=== PATIENT | female | born 2000 | race Two or more races ===

== ENCOUNTER 2025-02-12 09:04 | Emergency (ER) | payer SELFPAY ==
[~2025-02-12] VITALS: Ht 167.6 cm; Wt 65.0 kg
[2025-02-12 09:25] VITALS: BP 118/84; PULSE 71; RESP 16; TEMP 97.9; O2SAT 99
--- NOTE | 2025-02-12 09:47 | ED.PDOC ---
General HPI Comments A 24 YEAR OLD FEMALE PRESENTS TO THE ED WITH COMPLAINT OF UTI SYMPTOMS. PATIENT STATES SHE HAS BEEN EXPERIENCING PAINFUL URINATION, URINARY URGENCY, NAUSEA, AND SUPRAPUBIC PRESSURE FOR THE PAST 4 DAYS. PATIENT DENIES HEMATURIA, FLANK PAIN, FEVER, CHILLS, SHORTNESS OF BREATH, CHEST PAIN, VOMITING, HEADACHE, OR OTHER COMPLAINTS. NO OTHER SYMPTOMS OR MODIFYING FACTORS AT THIS TIME. PATIENT IS ALERT, ORIENTED X 4, AND HAS STEADY GAIT. Chief Complaint: Urinary Time Seen by MD: 09:10 Reviewed notes: Nurses Notes, Medications, Allergies Allergies: Coded Allergies: NO KNOWN ALLERGIES (Unverified , 02/12/25) Home Meds Active Scripts Phenazopyridine HCl (Phenazopyridine Hydrochlo) 200 Mg Tab, 200 MG PO TID, #6 TAB Prov:JOHN GRIGGS 02/12/25 Sulfamethoxazole W/Trimethopri (Bactrim Ds Tablet) 1 Tab Tb, 1 TAB PO BID, #20 TAB Prov:JOHN GRIGGS 02/12/25 Information Source: Patient Mode of Arrival: Ambulatory Severity: Moderate Inability to void: None Timing: Days Duration: Since onset, Days Prehospital treatment: None Onset: Spontaneous Symptoms: Dysuria, Frequency, Urgency, Other (SUPRAPUBIC PRESSURE) History of: UTI Location: Suprapubic associated signs and symptoms: Nausea, Dysuria Past Medical History PAST MEDICAL HISTORY: Denies Surgical History: Denies all surgeries ELEMENTARY SUPERVISOR History: No Pertinent ELEMENTARY SUPERVISOR History Family History Family History: Reviewed,noncontributory to illness Social History Smoker: Non-Smoker Alcohol: Denies ETOH Use Drugs: Denies Drug Use Lives In: Home Constitutional: denies: chills, diaphoresis, fatigue, fever, malaise, sweats, weakness, others EENTM: denies: blurred vision, double vision, ear bleeding, ear discharge, ear drainage, ear pain, ear ringing, eye pain, eye redness, hearing loss, mouth pain, mouth swelling, nasal discharge, nose bleeding, nose congestion, nose pain, photophobia, tearing, throat pain, throat swelling, voice changes, others Respiratory: denies: cough, hemoptysis, orthopnea, SOB at rest, shortness of breath, SOB with excertion, stridor, wheezing, others Cardiovascular: denies: chest pain, dizzy spells, diaphoresis, Dyspnea on exertion, edema, irregular heart beat, left arm pain, lightheadedness, palpitations, PND, syncope, others Gastrointestinal: denies: abdomen distended, abdominal pain, blood streaked bowels, constipated, diarrhea, dysphagia, difficulty swallowing, hematemesis, melena, nausea, poor appetite, poor fluid intake, rectal bleeding, rectal pain, vomiting, others Genitourinary: reports: burning, dysuria, pain (SUPRAPUBIC PRESSURE), urgency; denies: abnormal vagina bleeding, dyspareunia, flank pain, frequency, hematuria, incontinence, , vagina discharge, others Neurological: denies: dizziness, fainting, headache, left sided numbness, left sided weakness, numbness, paresthesia, pre-existing deficit, right sided numbness, right sided weakness, seizure, speech problems, tingling, tremors, weakness, others Musculoskeletal: denies: back pain, gout, joint pain, joint swelling, muscle pain, muscle stiffness, neck pain, others Integumetry: denies: bruises, change in color, change in hair/nails, dryness, laceration, lesions, lumps, rash, wounds, others Allergic/Immunocompromised: denies: Difficulty Healing, Frequent Infections, Hives, Itching, others Hematologic/Lymphatic: denies: anemia, blood clots, easy bleeding, easy bruising, swollen glands, others Endocrine: denies: excessive hunger, excessive sweating, excessive thirst, excessive urination, flushing, intolerance to cold, intolerance to heat, unexplained weight gain, unexplained weight loss, others Psychiatric: denies: anxiety, bipolar disorder, depression, hopeless, panic disorder, schizophrenia, sleepless, suicidal, others All Other Systems: Reviewed and Negative Physical Exam General Appearance: No Apparent Distress, Normal HEENT: Normal ENT Inspection, PERRL/EOMI, Pharynx Normal, TMs Normal Neck: Full Range of Motion, Non-Tender, Normal, Normal Inspection Respiratory: Chest Non-Tender, Lungs Clear, No Accessory Muscle Use, No Respiratory Distress, Normal Breath Sounds Cardiovascular: No Edema, No JVD, No Murmur, No Gallop, Normal Peripheral Pulses, Regular Rate/Rhythm Breast Exam: Deferred Gastrointestinal: No Organomegaly, Non Tender, No Pulsatile Mass, Normal Bowel Sounds, Soft, Suprapubic (PRESSURE. ) Genitalia: Deferred Pelvic: Deferred, Tender Uterus Rectal: Deferred Extremities: No calf tenderness, Normal capillary refill, Normal inspection, Normal range of motion, Non-tender, No pedal edema Musculoskeletal : Apperance: Normal Neurologic: Alert, bottom cementer II-XII nml as Tested, No Motor Deficits, Normal Affect, Normal Mood, No Sensory Deficits Cerebellar Function: Normal Reflexes: Normal Skin: Dry, Normal Color, Warm Peripheral Pulses: 2+ carotid (R), 2+ carotid (L) Lymphatic: No Adenopathy Was a procedure done? Was a procedure done?: No Differential Diagnosis Kidney stone (Female): N/A Kidney stone (Male): N/A Penile/Scrotal: N/A Urinary Problem (Male): N/A Urinary Problem (Female): Pyelonephritis, Urolithiasis, UTI, Vaginitis X-Ray, Labs, Meds, VS Vital Signs Date Time Temp Pulse Resp B/P (MAP) Pulse Ox O2 Delivery O2 Flow Rate FiO2 02/12/25 09:25 97.9 71 16 118/84 (95) 99 97.9 02/12/25 09:25 71 16 99 Room Air 0 02/12/25 09:06 98.9 63 18 119/84 98 98.9 Lab Test 02/12/25 09:40 Range/Units Urine Color Light-orange Yellow Urine Clarity Ex.turbid Clear Urine pH 7.5 5.0-9.0 Urine Specific [place] 1.025 1.001-1.035 Urine Protein 1+ H Negative Urine Ketones 1+ H Negative Urine Blood 3+ H Negative /uL Urine Nitrite Negative Negative Urine Bilirubin Negative Negative Urine Urobilinogen Normal Negative mg/dL Urine Leukocyte Esterase 3+ Negative /uL Urine RBC 1843 0 - 4 /hpf Urine Microscopic WBC 474 H 0-5 /HPF Urine Squamous Epithelial Cells Few <5 /hpf Urine Bacteria None seen None Seen /hpf Urine Mucus Few None Seen Urine Yeast (Budding) Few None Seen /hpf Urine Glucose Normal Normal mg/dL Urine Test Negative Negative Current Medications Medications (Trade) Dose Ordered Sig/Vivien Route Start Time Stop Time Status Last Admin Ceftriaxone Sodium (Rocephin) 1,000 mg ONCE ONCE IM 02/12/25 10:15 02/12/25 10:16 DC 02/12/25 10:19 X-Ray, Labs, Meds, VS Comment EXTERNAL MEDICAL RECORDS REVIEWED: [NONE] INDEPENDENT HISTORIANS: [NONE] SOCIAL DETERMINANTS OF HEALTH: [NONE] LABS ORDERED: UA, URINE REVIEWED AND INTERPRETED RESULTS: LEUKO 3+, URINE WBC 474 IMAGING ORDERED: NONE TREATMENTS ORDERED: ROCEPHIN 1G IM PROCEDURES PERFORMED: NONE CRITICAL CARE TIME: NONE I HAVE DISCUSSED THE PATIENT WITH THE ATTENDING PHYSICIAN, DR. FINNEY S/HE AGREES WITH THE PATIENT'S PLAN OF CARE AND DISPOSITION. BASED ON HISTORY OF PRESENT ILLNESS, AND PHYSICAL EXAM, PATIENT WILL BE DISCHARGED HOME. DISCUSSED PLAN FOR DISCHARGE HOME WITH RX [SEPTRA DS AND PYRIDIUM]. MEDICATION WARNINGS GIVEN. SHARED DECISION MAKING: PATIENT INSTRUCTED TO FOLLOW UP WITH PRIMARY CARE PROVIDER IN 1-2 DAYS FOR RE-EVALUATION OF SYMPTOMS. PATIENT VERBALIZES UNDERSTANDING TO RETURN TO ED FOR NEW OR WORSENING SYMPTOMS OR IF FOLLOW UP WITH PCP CANNOT BE OBTAINED. PATIENT FEELS COMFORTABLE GOING HOME AT THIS TIME. ALL QUESTIONS ADDRESSED AT TIME OF DISCHARGE. Time of 1ST Reevaluation: 10:36 Reevaluation 1ST: Improved Patient Education/Counseling: Diagnosis, Treatment, Need For Follow Up Family Education/Counseling: Diagnosis, Treatment, Need For Follow Up Medical Screening: No EMC Exist At This Time SEPSIS Sepsis Screen Date sepsis recognized/suspect: Feb 12, 2025 Time Sepsis recognized/suspect: 0908 Recent Procedure: No On Antibiotic Therapy: No Respiratory Rate >20: No Heart Rate >90: No Temp<36 C (96.8 F) or >38.3 C: No SBP <90 or MAP <65 mmHG: No New Acute Mental Status Change: No Is the patient on CPAP, BIPAP,: No Vital Signs Date Time Temp Pulse Resp B/P (MAP) Pulse Ox O2 Delivery O2 Flow Rate FiO2 02/12/25 09:25 97.9 71 16 118/84 (95) 99 97.9 02/12/25 09:25 71 16 99 Room Air 0 02/12/25 09:06 98.9 63 18 119/84 98 98.9 Medications Medications Dose Ordered Sig/Vivien Route Start Time Stop Time Status Last Admin Dose Admin Ceftriaxone Sodium 1,000 mg ONCE ONCE IM 02/12/25 10:15 02/12/25 10:16 DC 02/12/25 10:19 Departure 1 Departure Time of Disposition: 10:50 Impression: Primary Impression: Acute UTI (urinary tract infection) Disposition: 01 HOME / SELF CARE / HOMELESS Condition: Stable Additional Instructions: FOLLOW-UP WITH PCP IN 1 TO 2 DAYS. TAKE MEDICATIONS PRESCRIBED. RETURN TO ED FOR ANY NEW OR WORSENING SYMPTOMS. e-Prescriptions Phenazopyridine HCl (Phenazopyridine Hydrochlo) 200 Mg Tab 200 MG PO TID, #6 TAB Prov: JOHN GRIGGS 02/12/25 Sulfamethoxazole W/Trimethopri (Bactrim Ds Tablet) 1 Tab Tb 1 TAB PO BID, #20 TAB Prov: JOHN GRIGGS 02/12/25 Discharged With: Self Critical Care Note Critical Care Time?: No Stability Stability form required: No I personally scribed for JOHN GRIGGS ([email or web address]) on 02/12/25 at 09:47. Electronically submitted by Rizwan Soliz ([email or web address]). I personally scribed for JOHN GRIGGS ([email or web address]) on 02/12/25 at 10:33. Electronically submitted by Rizwan Soliz ([email or web address]). JOHN GRIGGS Feb 12, 2025 09:47
[2025-02-12 09:58] LABS: Urine Budding Yeast FEW /hpf (None Seen); Urine Protein, UAD 1+ (Negative)
[2025-02-12] MEDS: cefTRIAXone SOD 1,000 MG VL IM ONE (10:19)
[2025-02-12] MEDS ORDERED: PHEN-922 PO (10:35)
[2025-02-12] MEDS ORDERED: BACDST PO (10:35)
== END 2025-02-12 10:40 | disposition home or self-care (01) ==
LOC: ER 09:04
DX: N39.0 Urinary tract infection, site not specified (principal)
CPT/HCPCS: 81001; 81025; 96372; 99283; J0696

== ENCOUNTER 2025-02-28 10:30 | Emergency (ER) | payer OTHER ==
[~2025-02-28] VITALS: Ht 167.6 cm; Wt 65.6 kg
[~2025-02-28 10:30] MED LIST: BACDST PO; PHEN-922 PO
[2025-02-28] MEDS: ONDANSETRON ODT 4 MG TAB PO ONE (11:11)
[2025-02-28 11:14] LABS: Hematocrit 38.0 % (36.0-46.0); Hemoglobin 13.2 g/dL (12.2-16.2); Mean Corpuscular Hemoglobin 30.9 pg (28.0-32.0); Mean Corpuscular Volume 88.6 fL (80.0-100.0); Nucleated Red Blood Cells % 0.4 %
--- NOTE | 2025-02-28 11:19 | ED.PDOC ---
GI ASSESSMENT HPI Comments 24-year-old female presents here with abdominal pain few days. She states earlier in the month a proximally 3 weeks ago she was diagnosed with UTI, she did have dysuria at that time. She states she was discharged home with the antibiotic but was unable to finish it due to the vomiting. She states she now has pain to her lower abdomen and pain to her left upper quadrant. Reports positive nausea. Denies any diarrhea. She does state that her menstrual cycles proximally 10 days late which is not normal for her. She did take a plan B. currently no longer has any dysuria. But does feel some tingling still in her lower abdomen. Chief Complaint: Abdominal Pain Time Seen by MD: 11:25 Reviewed Notes: Medications, Allergies Allergies: Coded Allergies: NO KNOWN ALLERGIES (Unverified , 02/12/25) Home Meds Active Scripts Phenazopyridine HCl (Phenazopyridine Hydrochlo) 200 Mg Tab, 200 MG PO TID, #6 TAB Prov:JOHN GRIGGS 02/12/25 Sulfamethoxazole W/Trimethopri (Bactrim Ds Tablet) 1 Tab Tb, 1 TAB PO BID, #20 TAB Prov:JOHN GRIGGS 02/12/25 Information Source: Patient Mode of Arrival: Ambulatory Timing: Days Duration: Since onset Prehospital treatment: None Quality: Cramping, Sharp Vomitus: None Severity: Moderate Recent: None Recent Hx of: None Pain Location: Suprapubic Modifying Factors: Nothing Associated sign and symptoms: Abdominal Pain Past Medical History PAST MEDICAL HISTORY: UTI'S Surgical History: Denies all surgeries EXTRACT MIXER History: No Pertinent EXTRACT MIXER History Family History Family History: Reviewed,noncontributory to illness Social History Smoker: Non-Smoker Alcohol: Occasionally Drugs: Marijuana Lives In: Home Constitutional: denies: chills, diaphoresis, fatigue, fever, malaise, sweats, weakness, others EENTM: denies: blurred vision, double vision, ear bleeding, ear discharge, ear drainage, ear pain, ear ringing, eye pain, eye redness, hearing loss, mouth pain, mouth swelling, nasal discharge, nose bleeding, nose congestion, nose pain , photophobia, tearing, throat pain, throat swelling, voice changes, others Respiratory: denies: cough, hemoptysis, orthopnea, SOB at rest, shortness of breath, SOB with excertion, stridor, wheezing, others Cardiovascular: denies: chest pain, dizzy spells, diaphoresis, Dyspnea on exertion, edema, irregular heart beat, left arm pain, lightheadedness, palpitations, PND, syncope, others Gastrointestinal: reports: abdominal pain, nausea; denies: abdomen distended, blood streaked bowels, constipated, diarrhea, dysphagia, difficulty swallowing, hematemesis, melena, poor appetite, poor fluid intake, rectal bleeding, rectal pain, vomiting, others Genitourinary: denies: abnormal vagina bleeding, burning, dyspareunia, dysuria, flank pain, frequency, hematuria, incontinence, pain, , vagina discharge, urgency, others Neurological: denies: dizziness, fainting, headache, left sided numbness, left sided weakness, numbness, paresthesia, pre-existing deficit, right sided numbness, right sided weakness, seizure, speech problems, tingling, tremors, weakness, others Musculoskeletal: denies: back pain, gout, joint pain, joint swelling, muscle pain, muscle stiffness, neck pain, others Integumetry: denies: bruises, change in color, change in hair/nails, dryness, laceration, lesions, lumps, rash, wounds, others Allergic/Immunocompromised: denies: Difficulty Healing, Frequent Infections, Hives, Itching, others Hematologic/Lymphatic: denies: anemia, blood clots, easy bleeding, easy bruising, swollen glands, others Endocrine: denies: excessive hunger, excessive sweating, excessive thirst, excessive urination, flushing, intolerance to cold, intolerance to heat, unexplained weight gain, unexplained weight loss, others Psychiatric: denies: anxiety, bipolar disorder, depression, hopeless, panic disorder, schizophrenia, sleepless, suicidal, others All Other Systems: Reviewed and Negative Physical Exam General Appearance: No Apparent Distress, Normal HEENT: Normal ENT Inspection, Pharynx Normal, TMs Normal Neck: Full Range of Motion, Non-Tender, Normal, Normal Inspection Respiratory: Chest Non-Tender, Lungs Clear, No Accessory Muscle Use, No Respiratory Distress, Normal Breath Sounds Cardiovascular: No Edema, No JVD, No Murmur, No Gallop, Normal Peripheral Pulses, Regular Rate/Rhythm Breast Exam: Deferred Gastrointestinal: No Organomegaly, Non Tender, No Pulsatile Mass, Normal Bowel Sounds, RUQ, Soft, Other (Right upper quadrant and suprapubic tenderness to palpation) Genitalia: Deferred Pelvic: Deferred Rectal: Deferred Extremities: No calf tenderness, Normal capillary refill, Normal inspection, Normal range of motion, Non-tender, No pedal edema Musculoskeletal : Apperance: Normal Neurologic: Alert, clinical research nurse coordinator II-XII nml as Tested, No Motor Deficits, Normal Affect, Normal Mood, No Sensory Deficits Cerebellar Function: Normal Reflexes: Normal Skin: Dry, Normal Color, Warm Lymphatic: No Adenopathy Was a procedure done? Was a procedure done?: No GI differential Dx Differential Diagnosis: Complete , Incomplete , Inevitable , Missed , Threatened , Cholangitis, Cholecystitis, Gastritis/PUD, Gastroenteritis, Electrolyte Imbalance, Food Poisoning, , Viral Other Differential Diagnosis Pyelonephritis, UTI, ectopic , intrauterine , cholecystitis, biliary colic X-Ray, Labs, Meds, VS Vital Signs Date Time Temp Pulse Resp B/P (MAP) Pulse Ox O2 Delivery O2 Flow Rate FiO2 02/28/25 13:18 98.4 73 18 129/67 (87) 95 98.4 02/28/25 10:35 98.2 109 18 125/83 96 98.2 Lab Test 02/28/25 11:30 02/28/25 10:56 Range/Units Urine Color Yellow Yellow Urine Clarity Turbid H Clear Urine pH 6.5 5.0-9.0 Urine Specific [place] 1.034 1.001-1.035 Urine Protein 1+ H Negative Urine Ketones Negative Negative Urine Blood Negative Negative /uL Urine Nitrite Negative Negative Urine Bilirubin Negative Negative Urine Urobilinogen 2 H Negative mg/dL Urine Leukocyte Esterase Trace Negative /uL Urine RBC 8 0 - 4 /hpf Urine Microscopic WBC 9 H 0-5 /HPF Urine Squamous Epithelial Cells Many <5 /hpf Urine Bacteria Few H None Seen /hpf Urine Mucus Few None Seen Urine Glucose Normal Normal mg/dL Urine Test Positive Negative White Blood Count 5.7 4.4-10.8 10^3/uL Red Blood Count 4.29 4.0-5.20 10^6/uL Hemoglobin 13.2 12.2-16.2 g/dL Hematocrit 38.0 36.0-46.0 % Mean Corpuscular Volume 88.6 80.0-100.0 fL Mean Corpuscular Hemoglobin 30.9 28.0-32.0 pg Mean Corpuscular Hemoglobin Concent 34.8 32.0-36.0 g/dL Red Cell Distribution Width 14.6 H 11.8-14.3 % Platelet Count 179 140-450 10^3/uL Mean Platelet Volume 6.9 6.9-10.8 fL Neutrophils (%) (Auto) 28.1 L 37.0-80.0 % Lymphocytes (%) (Auto) 61.6 H 10.0-50.0 % Monocytes (%) (Auto) 9.0 0.0-12.0 % Eosinophils (%) (Auto) 1.0 0.0-7.0 % Basophils (%) (Auto) 0.3 0.0-2.0 % Neutrophils # (Auto) 1.6 1.6-8.6 10 ^3/uL Lymphocytes # (Auto) 3.5 0.4-5.4 10 ^3/uL Monocytes # (Auto) 0.5 0-1.3 10 ^3/uL Eosinophils # (Auto) 0.1 0-0.8 10 ^3/uL Basophils # (Auto) 0 0-0.2 10 ^3/uL Nucleated Red Blood Cells 0.4 % Sodium Level 139 136-145 mmol/L Potassium Level 3.7 3.5-5.1 mmol/L Chloride Level 105 98-107 mmol/L Carbon Dioxide Level 25 20-31 mmol/L Anion Gap 9 5-15 Blood Urea Nitrogen 8 L 9-23 mg/dL Creatinine 0.85 0.550-1.02 mg/dL Glomerular Filtration Rate Calc 99 >90 mL/min BUN/Creatinine Ratio 9.4 L 10.0-20.0 Serum Glucose 86 74-106 mg/dL Calcium Level 8.8 8.7-10.4 mg/dL Total Bilirubin 0.8 0.2-1.0 mg/dL Aspartate Amino Transferase (AST) 70 H 13-40 U/L Alanine Aminotransferase (ALT) 49 H 7-40 U/L Alkaline Phosphatase 78 46-116 U/L Total Protein 7.6 5.7-8.2 g/dL Albumin 4.1 3.2-4.8 g/dL Lipase 30 12-53 U/L Beta HCG, Quantitative 7115.5 H 1.5-4.2 mIU/mL Current Medications Medications (Trade) Dose Ordered Sig/Vivien Route Start Time Stop Time Status Last Admin Ondansetron HCl (Zofran Po) 4 mg ONCE ONCE PO 02/28/25 10:45 02/28/25 10:46 DC 02/28/25 11:[address] [address] Ph: [phone] DIAGNOSTIC IMAGING Diagnostic Imaging Report : [id number] Signed PATIENT: [address]IE [address] ACCT: [id number] UNIT: [id number] : 2000 LOC: ER ROOM / BED: / AGE / SEX: 24 / F ADM STATUS: REG ER SERVICE 1138 ORDERING PHYSICIAN: GLORIA PEDRAZA MD PROCEDURE(s): OB4US - OB ULTRASOUND COMP LESS 14WKS REASON: RULE OUT ECTOPIC ORDER NUMBER(s): [id number], ACCESSION NUMBER(s): [id number] CLINICAL HISTORY: RULE OUT ECTOPIC TECHNIQUE: Ultrasound examination of the female pelvis was performed transabdominally. Transvaginal ultrasound was performed to more optimally assess the endometrial cavity. COMPARISON: None FINDINGS: TRANSABDOMINAL IMAGING: The bladder is grossly unremarkable. Endovaginal imaging was thereafter performed for better depiction of the anatomy. ENDOVAGINAL IMAGING: The uterus measures 8.7 x 6.5 x 5.6 CM. The myometrial echotexture is homogenous. No focal myometrial abnormality is seen. There is an 8 mm gestational sac within endometrial cavity of the uterine fundus. A yolk sac is present. There is no pole. The right ovary measures 3.2 x 2.2 x 2.4 cm. There is a 2.2 cm cysts. The left ovary measures 3.4 x 1.5 x 1.9 cm. Normal color doppler flow and vascular waveforms. Trace nonspecific free fluid in the deep pelvis. IMPRESSION: IUP with no pole. Differential includes early normal IUP and failed . Suggest correlation with serial beta HCG level and follow-up ultrasound exams as clinically indicated. ATED BY: KAMINI DOYLE MD DICTATED DATE/TIME: 02/28/25 1321 SIGNED BY: KAMINI DOYLE MD SIGNED DATE/TIME: 02/28/25 [address] [address] Ph: [phone] DIAGNOSTIC IMAGING Diagnostic Imaging Report : [id number] Signed PATIENT: S[address]IE [address] ACCT: [id number] UNIT: [id number] : 2000 LOC: ER ROOM / BED: / AGE / SEX: 24 / F ADM STATUS: REG ER SERVICE 1138 ORDERING PHYSICIAN: GLORIA PEDRAZA MD PROCEDURE(s): GBUS - GALLBLADDER REASON: Rule out cholecystitis ORDER NUMBER(s): [id number], ACCESSION NUMBER(s): [id number] CLINICAL HISTORY: Rule out cholecystitis TECHNIQUE: Transabdominal sonogram was performed of the right upper quadrant. COMPARISON: None FINDINGS: The liver is normal in echogenicity. There is no focal parenchymal abnormality. No intrahepatic biliary ductal dilatation is present. The liver measures 14.9 cm. The gallbladder contains polyps measuring up to 4 mm with no evidence for stones or wall thickening. The common bile duct is normal in caliber, measuring 3 mm. The visualized pancreas is grossly unremarkable. The right kidney is normal in echogenicity and measures 10.9 cm in length. There is no evidence for hydronephrosis or calculi. IMPRESSION: Gallbladder polyps measuring up to 4 mm. ATED BY: KAMINI DOYLE MD DICTATED DATE/TIME: 02/28/25 1315 SIGNED BY: KAMINI DOYLE MD SIGNED DATE/TIME: 02/28/25 1315 24-year-old female presents here with abdominal pain. She was diagnosed with a UTI several weeks ago but did not finish her antibiotic course as it did not make her feel well. She now presents here with a few days of left upper quadrant and lower quadrant pain. She also states her period is 10 days late. This time differential is wide which includes UTI/pyelonephritis/cholecystitis, biliary colic, appendicitis, ovarian torsion, ectopic . I have ordered a CBC, CMP, lipase, gallbladder ultrasound, uterine ultrasound, urinalysis. Time of 1ST Reevaluation: 11:55 Reevaluation 1ST: Unchanged Patient Education/Counseling: Diagnosis, Treatment, Need For Follow Up Family Education/Counseling: No Family Present SEPSIS Sepsis Screen Date sepsis recognized/suspect: Feb 28, 2025 Time Sepsis recognized/suspect: 1037 Recent Procedure: No On Antibiotic Therapy: No Respiratory Rate >20: No Heart Rate >90: No Temp<36 C (96.8 F) or >38.3 C: No SBP <90 or MAP <65 mmHG: No New Acute Mental Status Change: No Is the patient on CPAP, BIPAP,: No Physician Orders Urinalysis (02/28/25 10:39) Gallbladder (02/28/25 11:38) Ob Ultrasound Comp Less 14wks (02/28/25 11:38) Vital Signs Date Time Temp Pulse Resp B/P (MAP) Pulse Ox O2 Delivery O2 Flow Rate FiO2 02/28/25 13:18 98.4 73 18 129/67 (87) 95 98.4 02/28/25 10:35 98.2 109 18 125/83 96 98.2 Laboratory Tests Test 02/28/25 10:56 White Blood Count 5.7 10^3/uL (4.4-10.8) Medications Medications Dose Ordered Sig/Vivien Route Start Time Stop Time Status Last Admin Dose Admin Ondansetron HCl 4 mg ONCE ONCE PO 02/28/25 10:45 02/28/25 10:46 DC 02/28/25 11:11 Departure 1 Departure Time of Disposition: 16:24 Impression: Primary Impression: Gallbladder polyp Additional Impression: IUP (intrauterine ), incidental Disposition: 01 HOME / SELF CARE / HOMELESS Condition: Stable Additional Instructions: Follow up with your OBGYN in 2-3 days. Return to the ER or your OBGYN in 48 hours for repeat beta quantitative. [address] [address] Ph: [phone] DIAGNOSTIC IMAGING Diagnostic Imaging Report : [id number] Signed PATIENT: S[address]IE [address] ACCT: [id number] UNIT: [id number] : 2000 LOC: ER ROOM / BED: / AGE / SEX: 24 / F ADM STATUS: REG ER SERVICE 1138 ORDERING PHYSICIAN: GLORIA PEDRAZA MD PROCEDURE(s): OB4US - OB ULTRASOUND COMP LESS 14WKS REASON: RULE OUT ECTOPIC ORDER NUMBER(s): [id number], ACCESSION NUMBER(s): [id number] CLINICAL HISTORY: RULE OUT ECTOPIC TECHNIQUE: Ultrasound examination of the female pelvis was performed transabdominally. Transvaginal ultrasound was performed to more optimally assess the endometrial cavity. COMPARISON: None FINDINGS: TRANSABDOMINAL IMAGING: The bladder is grossly unremarkable. Endovaginal imaging was thereafter performed for better depiction of the anatomy. ENDOVAGINAL IMAGING: The uterus measures 8.7 x 6.5 x 5.6 CM. The myometrial echotexture is yimi ogenous. No focal myometrial abnormality is seen. There is an 8 mm gestational sac within endometrial cavity of the uterine fu ndus. A yolk sac is present. There is no pole. The right ovary measures 3.2 x 2.2 x 2.4 cm. There is a 2.2 cm cysts. The left ovary measures 3.4 x 1.5 x 1.9 cm. Normal color doppler flow and vascular waveforms. Trace nonspecific free fluid in the deep pelvis. IMPRESSION: IUP with no pole. Differential includes early normal IUP and failed . Suggest correlation with serial beta HCG level and follow-up ultrasound exams as clinically indicated. ATED BY: KAMINI DOYLE MD DICTATED DATE/TIME: 02/28/25 1321 SIGNED BY: KAMINI DOYLE MD SIGNED DATE/TIME: 02/28/25 1321 CC: Discharged With: Self Critical Care Note Critical Care Time?: No Stability Stability form required: No Heart Score Heart Score: Heart Score Response (Comments) Value History N/A 0 EKG N/A 0 Age N/A 0 Risk Factors N/A 0 Troponin N/A 0 Total 0 I personally scribed for GLORIA PEDRAZA MD ([email or web address]) on 02/28/25 at 11:19. Electronically submitted by Chalino Mcmanus ([email or web address]). I personally scribed for GLORIA PEDRAZA MD ([email or web address]) on 02/28/25 at 11:48. Electronically submitted by Rizwana Weaver ([email or web address]). I personally scribed for GLORIA PEDRAZA MD ([email or web address]) on 02/28/25 at 13:59. Electronically submitted by Rizwana Weaver ([email or web address]). I personally scribed for GLORIA PEDRAZA MD ([email or web address]) on 02/28/25 at 15:12. Electronically submitted by Chalino Mcmanus ([email or web address]). GLORIA PEDRAZA MD Feb 28, 2025 11:19
[2025-02-28 11:34] LABS: Albumin 4.1 g/dL (3.2-4.8); Alkaline Phosphatase 78 U/L (46-116); Anion Gap 9 (5-15); BUN/Creatinine Ratio 9.4 (10.0-20.0); Bilirubin, Total 0.8 mg/dL (0.2-1.0); Calcium 8.8 mg/dL (8.7-10.4); Carbon Dioxide 25 mmol/L (20-31); Chloride 105 mmol/L (98-107); Glucose 86 mg/dL (74-106); Lipase 30 U/L (12-53); Potassium 3.7 mmol/L (3.5-5.1); Sodium 139 mmol/L (136-145); Total Protein 7.6 g/dL (5.7-8.2)
[2025-02-28 12:00] LABS: Alanine Aminotransferase 49 U/L (7-40); Blood Urea Nitrogen 8 mg/dL (9-23)
[2025-02-28 12:15] LABS: Urine Protein, UAD 1+ (Negative)
--- NOTE | 2025-02-28 13:17 | DVH ---
CLINICAL HISTORY: Rule out cholecystitis TECHNIQUE: Transabdominal sonogram was performed of the right upper quadrant. COMPARISON: None FINDINGS: The liver is normal in echogenicity. There is no focal parenchymal abnormality. No intrahepatic bili estephanie ductal dilatation is present. The liver measures 14.9 cm. The gallbladder contains polyps measuring up to 4 mm with no evidence for stones or wall thickening. The common bile duct is normal in caliber, measuring 3 mm. The visualized pancreas is grossly unremarkable. The right kidney is normal in echogenicity and measures 10.9 cm in length. There is no evidence for h ydronephrosis or calculi. IMPRESSION: Gallbladder polyps measuring up to 4 mm.
--- NOTE | 2025-02-28 13:24 | DVH ---
CLINICAL HISTORY: RULE OUT ECTOPIC TECHNIQUE: Ultrasound examination of the female pelvis was performed transabdominally. Transvaginal u ltrasound was performed to more optimally assess the endometrial cavity. COMPARISON: None FINDINGS: TRANSABDOMINAL IMAGING: The bladder is grossly unremarkable. Endovaginal imaging was thereafter performed for better depictio n of the anatomy. ENDOVAGINAL IMAGING: The uterus measures 8.7 x 6.5 x 5.6 CM. The myometrial echotexture is homogenous. No focal myometria l abnormality is seen. There is an 8 mm gestational sac within endometrial cavity of the uterine fundus. A yolk sac is prese nt. There is no pole. The right ovary measures 3.2 x 2.2 x 2.4 cm. There is a 2.2 cm cysts. The left ovary measures 3.4 x 1.5 x 1.9 cm. Normal color doppler flow and vascular waveforms. Trace nonspecific free fluid in the deep pelvis. IMPRESSION: IUP with no pole. Differential includes early normal IUP and failed . Suggest correla tion with serial beta HCG level and follow-up ultrasound exams as clinically indicated.
[2025-02-28 16:40] VITALS: BP 112/79; PULSE 70; RESP 18; TEMP 97.8; O2SAT 99
== END 2025-02-28 16:45 | disposition home or self-care (01) ==
LOC: ER 10:30
DX: O20.0 Threatened abortion (principal); O26.899 Other specified pregnancy related conditions, unspecified trimester; K82.4 Cholesterolosis of gallbladder; Z3A.01 Less than 8 weeks gestation of pregnancy; F12.90 Cannabis use, unspecified, uncomplicated; F10.90 Alcohol use, unspecified, uncomplicated; Z87.440 Personal history of urinary (tract) infections; Z79.899 Other long term (current) drug therapy; Y90.9 Presence of alcohol in blood, level not specified
CPT/HCPCS: 36415; 76705; 76801; 80053; 81001; 81025; 83690; 84702; 85025; 99284; Q0162

== ENCOUNTER 2025-03-02 09:35 | Emergency (ER) | payer OTHER ==
[~2025-03-02] VITALS: Ht 167.6 cm; Wt 65.3 kg
[2025-03-02 09:42] VITALS: TEMP 97.2
--- NOTE | 2025-03-02 10:17 | ED.PDOC ---
History of Present Illness HPI Comments 24-year-old female who presents to the ED with a chief complaint of abnormal labs. Patient states she was seen in this ED 2 days ago, was told she was room was told to return in 2 days to check HCG levels. , she is approximately 5 weeks . She states she has been experiencing constipa tion for the past 3 days. Denies any PMHx as well as nausea, vomiting, diarrhea, vaginal discharge, vaginal bleeding, dysuria, abdominal pain. No other symptoms or modifying factors present at this time. Chief Complaint: Abnormal LAB's Time Seen by MD: 10:10 Reviewed Notes: Medications, Allergies Allergies: Coded Allergies: NO KNOWN ALLERGIES (Unverified , 02/12/25) Home Meds Active Scripts Phenazopyridine HCl (Phenazopyridine Hydrochlo) 200 Mg Tab, 200 MG PO TID, #6 TAB Prov:JOHN GRIGGS 02/12/25 Sulfamethoxazole W/Trimethopri (Bactrim Ds Tablet) 1 Tab Tb, 1 TAB PO BID, #20 TAB Prov:JOHN GRIGGS 02/12/25 Information Source: Patient Mode of Arrival: Ambulatory Severity: Moderate Timing: Days Duration: Since onset Prehospital treatment: None Past Medical History PAST MEDICAL HISTORY: UTI'S Surgical History: Denies all surgeries NITRO WORKER History: No Pertinent NITRO WORKER History Family History Family History: Reviewed,noncontributory to illness Social History Smoker: Non-Smoker Alcohol: Occasionally Drugs: Marijuana Lives In: Home Constitutional: denies: chills, diaphoresis, fatigue, fever, malaise, sweats, weakness, others EENTM: denies: blurred vision, double vision, ear bleeding, ear discharge, ear drainage, ear pain, ear ringing, eye pain, eye redness, hearing loss, mouth pain, mouth swelling, nasal discharge, nose bleeding, nose congestion, nose pain, photophobia, tearing, throat pain, throat swelling, voice changes, others Respiratory: denies: cough, hemoptysis, orthopnea, SOB at rest, shortness of breath, SOB with excertion, stridor, wheezing, others Cardiovascular: denies: chest pain, dizzy spells, diaphoresis, Dyspnea on exertion, edema, irregular heart beat, left arm pain, lightheadedness, palpitations, PND, syncope, others Gastrointestinal: denies: abdomen distended, abdominal pain, blood streaked bowels, constipated, diarrhea, dysphagia, difficulty swallowing, hematemesis, melena, nausea, poor appetite, poor fluid intake, rectal bleeding, rectal pain, vomiting, others Genitourinary: reports: ; denies: abnormal vagina bleeding, burning, dyspareunia, dysuria, flank pain, frequency, hematuria, incontinence, pain, vagina discharge, urgency, others Neurological: denies: dizziness, fainting, headache, left sided numbness, left sided weakness, numbness, paresthesia, pre-existing deficit, right sided numbness, right sided weakness, seizure, speech problems, tingling, tremors, weakness, others Musculoskeletal: denies: back pain, gout, joint pain, joint swelling, muscle pain, muscle stiffness, neck pain, others Integumetry: denies: bruises, change in color, change in hair/nails, dryness, laceration, lesions, lumps, rash, wounds, others Allergic/Immunocompromised: denies: Difficulty Healing, Frequent Infections, Hives, Itching, others Hematologic/Lymphatic: denies: anemia, blood clots, easy bleeding, easy bruising, swollen glands, others Endocrine: denies: excessive hunger, excessive sweating, excessive thirst, excessive urination, flushing, intolerance to cold, intolerance to heat, unexplained weight gain, unexplained weight loss, others Psychiatric: denies: anxiety, bipolar disorder, depression, hopeless, panic disorder, schizophrenia, sleepless, suicidal, others All Other Systems: Reviewed and Negative Physical Exam General Appearance: No Apparent Distress, Normal HEENT: Normal ENT Inspection, Pharynx Normal, TMs Normal Neck: Full Range of Motion, Non-Tender, Normal, Normal Inspection Respiratory: Chest Non-Tender, Lungs Clear, No Accessory Muscle Use, No Respiratory Distress, Normal Breath Sounds Cardiovascular: No Edema, No JVD, No Murmur, No Gallop, Normal Peripheral Pulses, Regular Rate/Rhythm Breast Exam: Deferred Gastrointestinal: No Organomegaly, Non Tender, No Pulsatile Mass, Normal Bowel Sounds, Soft Genitalia: Deferred Pelvic: Deferred Rectal: Deferred Extremities: No calf tenderness, Normal capillary refill, Normal inspection, Normal range of motion, Non-tender, No pedal edema Musculoskeletal : Apperance: Normal Neurologic: Alert, 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 Was a procedure done?: No Differential Dx Considerations may include: threatened miscarriage X-Ray, Labs, Meds, VS Vital Signs Date Time Temp Pulse Resp B/P (MAP) Pulse Ox O2 Delivery O2 Flow Rate FiO2 03/02/25 10:20 112 18 124/92 (103) 99 03/02/25 10:20 112 18 99 Room Air 03/02/25 09:42 97.2 68 16 110/80 98 97.2 Lab Test 03/02/25 11:19 03/02/25 10:14 Range/Units Urine Color Light-yellow Yellow Urine Clarity Clear Clear Urine pH 6.5 5.0-9.0 Urine Specific [place] 1.022 1.001-1.035 Urine Protein Negative Negative Urine Ketones Negative Negative Urine Blood Negative Negative /uL Urine Nitrite Negative Negative Urine Bilirubin Negative Negative Urine Urobilinogen Normal Negative mg/dL Urine Leukocyte Esterase 2+ Negative /uL Urine Glucose Normal Normal mg/dL White Blood Count 5.9 4.4-10.8 10^3/uL Red Blood Count 4.16 4.0-5.20 10^6/uL Hemoglobin 12.7 12.2-16.2 g/dL Hematocrit 37.1 36.0-46.0 % Mean Corpuscular Volume 89.4 80.0-100.0 fL Mean Corpuscular Hemoglobin 30.5 28.0-32.0 pg Mean Corpuscular Hemoglobin Concent 34.1 32.0-36.0 g/dL Red Cell Distribution Width 15.1 H 11.8-14.3 % Platelet Count 197 140-450 10^3/uL Mean Platelet Volume 7.1 6.9-10.8 fL Neutrophils (%) (Auto) 37.0-80.0 % Lymphocytes (%) (Auto) 10.0-50.0 % Monocytes (%) (Auto) 0.0-12.0 % Basophils (%) (Auto) 0.0-2.0 % Neutrophils # (Auto) 1.6-8.6 10 ^3/uL Lymphocytes # (Auto) 0.4-5.4 10 ^3/uL Monocytes # (Auto) 0-1.3 10 ^3/uL Differential Total Cells Counted 100.0 100 Neutrophils % (Manual) 29 L 37.0-80.0 Band Neutrophils % (Manual) 3 Lymphocytes % (Manual) 49 10.0-50.0 Monocytes % (Manual) 10 0-12 Eosinophils % (Manual) 4 0-7 Basophils % (Manual) 0 0.0-2.0 Metamyelocytes % (manual) 0 Myelocytes % (Manual) 0 Promyelocytes % (Manual) 0 Blast Cells % (Manual) 0 Reactive Lymphocytes 5 Platelet Estimate Adequate Anisocytosis (manual) Slight Sodium Level 137 136-145 mmol/L Potassium Level 4.0 3.5-5.1 mmol/L Chloride Level 106 98-107 mmol/L Carbon Dioxide Level 25 20-31 mmol/L Anion Gap 6 5-15 Blood Urea Nitrogen 8 L 9-23 mg/dL Creatinine 0.84 0.550-1.02 mg/dL Glomerular Filtration Rate Calc 101 >90 mL/min BUN/Creatinine Ratio 9.5 L 10.0-20.0 Serum Glucose 85 74-106 mg/dL Calcium Level 8.8 8.7-10.4 mg/dL Beta HCG, Quantitative 9534.8 H 1.5-4.2 mIU/mL Time of 1ST Reevaluation: 10:40 Reevaluation 1ST: Unchanged Patient Education/Counseling: Diagnosis, Treatment, Prognosis Family Education/Counseling: No Family Present SEPSIS Sepsis Screen Date sepsis recognized/suspect: Mar 02, 2025 Time Sepsis recognized/suspect: 0942 Recent Procedure: No On Antibiotic Therapy: No Respiratory Rate >20: No Heart Rate >90: No Temp<36 C (96.8 F) or >38.3 C: No SBP <90 or MAP <65 mmHG: No New Acute Mental Status Change: No Is the patient on CPAP, BIPAP,: No Physician Orders Ob Ultrasound Comp Less 14wks (03/02/25 10:05) Vital Signs Date Time Temp Pulse Resp B/P (MAP) Pulse Ox O2 Delivery O2 Flow Rate FiO2 03/02/25 10:20 112 18 124/92 (103) 99 03/02/25 10:20 112 18 99 Room Air 03/02/25 09:42 97.2 68 16 110/80 98 97.2 Laboratory Tests Test 03/02/25 10:14 White Blood Count 5.9 10^3/uL (4.4-10.8) Departure 1 Departure Time of Disposition: 13:23 (Patient likely with a threatened miscarriage versus blighted . We will discharge patient home with outpatient follow up) Impression: Primary Impression: Threatened miscarriage Disposition: 01 HOME / SELF CARE / HOMELESS Condition: Stable Referrals: EFFIE TORRES DO Additional Instructions: You have a threatened miscarriage. Your beta hcg level today was 9534. Your ultrasound showed a gestational sac without a pole . You should follow up with OBGYN within three days to recheck your blood work. If your symptoms worsen or you have any other concerns then please return to the ER. Discharged With: Self Critical Care Note Critical Care Time?: No Stability Stability form required: No Heart Score Heart Score: Heart Score Response (Comments) Value History N/A 0 EKG N/A 0 Age N/A 0 Risk Factors N/A 0 Troponin N/A 0 Total 0 I personally scribed for JOANN FINNEY MD ([email or web address]) on 03/02/25 at 10:17. Electronically submitted by Rizwana Weaver ([email or web address]). JOANN FINNEY MD Mar 02, 2025 10:17
[2025-03-02 10:20] VITALS: BP 124/92; PULSE 112; RESP 18; O2SAT 99
[2025-03-02 10:37] LABS: Hematocrit 37.1 % (36.0-46.0); Hemoglobin 12.7 g/dL (12.2-16.2); Mean Corpuscular Hemoglobin 30.5 pg (28.0-32.0); Mean Corpuscular Volume 89.4 fL (80.0-100.0)
[2025-03-02 10:38] LABS: Chloride 106 mmol/L (98-107); Potassium 4.0 mmol/L (3.5-5.1); Sodium 137 mmol/L (136-145)
[2025-03-02 10:39] LABS: Anion Gap 6 (5-15); Calcium 8.8 mg/dL (8.7-10.4); Carbon Dioxide 25 mmol/L (20-31)
[2025-03-02 10:44] LABS: BUN/Creatinine Ratio 9.5 (10.0-20.0); Glucose 85 mg/dL (74-106)
[2025-03-02 10:45] LABS: Blood Urea Nitrogen 8 mg/dL (9-23)
[2025-03-02 11:19] LABS: Anisocytosis Slight; Total Cells Counted 100.0 (100)
[2025-03-02 12:02] LABS: Urine Protein, UAD Negative (Negative)
--- NOTE | 2025-03-02 12:22 | DVH ---
OB ULTRASOUND <14 WEEKS: HISTORY: abdominal pain and vaginal bleeding TECHNIQUE: Multiple real-time grayscale sonographic images of the pelvis with duplex Doppler color f low, spectral and M-mode analysis. TRANSDUCERS: Transabdominal COMPARISON: US OB ULTRASOUND COMP LESS 14WKS on DOS: 02/28/25 FINDINGS: The uterus measures 11.4 x 6.7 x 6.6 cm The cervix is not visualized Right ovary measures 3.2 x 2.3 x 2.5 cm with normal Doppler color flow. Right ovarian cyst measures 1 .6 cm. Left ovary is not visualized. Possible early IUP single fetus at 5 weeks and 2 days average ultrasound age based on gestational s ac size of 1.13 cm heart rate detected at 0 beats per minute. Yolk sac is present. Amniotic fluid suboptimally within normal limits Esme-gestational space: Unremarkable IMPRESSION: Gestational sac within the uterus with no identifiable pole. This may be sales solutions representative of a b lighted versus early . Correlation with follow-up beta hCG levels. Follow-up ultra sound could be performed if clinically indicated.
== END 2025-03-02 13:51 | disposition home or self-care (01) ==
LOC: ER 09:35
DX: O20.0 Threatened abortion (principal); Z3A.01 Less than 8 weeks gestation of pregnancy
CPT/HCPCS: 36415; 76801; 80048; 81003; 84702; 85007; 85027; 86900; 86901